=== PATIENT | male | born 1995 | race Caucasian/White ===

== ENCOUNTER 2018-03-21 00:52 | Emergency (ER) | payer OTHER ==
[~2018-03-21] VITALS: Ht 182.9 cm; Wt 77.1 kg
[2018-03-21 00:49] VITALS: BP 121/64
--- NOTE | 2018-03-21 01:09 | Emergency Room Report ---
History of Present Illness General Chief Complaint: Substance Abuse Source: EMS Present Illness HPI This is a 22-year-old male with unknown past medical history. Is brought in by EMS for possible opiate per dose. He was found unresponsive on the street and someone called 911. Per EMS he has sonorous respiration and pinpoint pupil. They gave him 2 mg of Narcan. This woke him up and he was combative and agitated. Unknown able to get here further history from the patient. Unknown drug use. No trauma. Allergies: Coded Allergies: UNABLE TO ASSESS (Unverified , 03/21/18) Patient History Past Medical History: see triage record, old chart reviewed Past Surgical History: unable to obtain Pertinent Family History: unable to obtain Social History: Denies: alcohol use Immunizations: other Reviewed Nursing Documentation: PMH: Agreed; PSxH: Agreed Nursing Documentation-PMH Past Medical History Deferred: Patient Unconscious Review of Systems All Other Systems: limited - altered mental status Physical Exam Vital Signs Date Time Temp Pulse Resp B/P (MAP) Pulse Ox O2 Delivery O2 Flow Rate FiO2 03/21/18 00:40 97.5 97 18 121/64 99 97.5 03/21/18 00:49 Room Air vitals normal Sp02 EP Interpretation: reviewed, normal General Appearance: well appearing, no apparent distress, other - somnolent Head: normocephalic, atraumatic Eyes: bilateral eye PERRL, bilateral eye EOMI ENT: hearing grossly normal, normal pharynx Neck: full range of motion, supple, no meningismus Respiratory: chest non-tender, lungs clear, normal breath sounds Cardiovascular #1: regular rate, rhythm, no murmur Gastrointestinal: normal bowel sounds, non tender, no mass, no organomegaly, no bruit, non-distended Musculoskeletal: back normal, normal range of motion Neurologic: grossly normal Skin: warm/dry Medical Decision Making Diagnostic Impression: Primary Impression: Substance abuse Additional Impressions: Opiate or related narcotic overdose Qualified Codes: T40.601A - Poisoning by unspecified narcotics, accidental ( unintentional), initial encounter Alcohol intoxication Qualified Codes: F10.920 - Alcohol use, unspecified with intoxication, uncomplicated ER Course Patient with overdose, most likely opiate with combination of other drugs or alcohol since he's not fully awake after Narcan. Breathing better. Oxidation normal. We'll observe until clinical sobriety. Patient had elevated alcohol level. Urine drug screen negative for opiates. He may have synthetic opiates that would not show up on the drug screen. He did have pinpoint pupil and responded to Narcan. He had a chicken cheek [facility] a [facility] on his person. Rhythm Strip Diag. Results Rhythm Strip Time: 01:12 EP Interpretation: yes Rate: 92 Rhythm: NSR, no PVC's, no ectopy Last Vital Signs Date Time Temp Pulse Resp B/P (MAP) Pulse Ox O2 Delivery O2 Flow Rate FiO2 03/21/18 00:49 97.5 76 18 121/64 99 Room Air 97.5 Status: improved Disposition: HOME, SELF-CARE Condition: Stable Referrals: NOT CHOSEN IPA/MD,REFERRING (PCP) Patient Instructions: Substance Use Disorder Additional Instructions: Stop using drugs. Follow-up with your doctor in 7 days. Follow-up with rehabilitation. Return if worse. MAIDA HIRSCH M.D. Mar 21, 2018 01:09
[2018-03-21 01:35] VITALS: BP 112/78
[2018-03-21 02:55] VITALS: BP 110/74
[2018-03-21 05:14] VITALS: BP 120/68
[2018-03-21 05:40] VITALS: BP 120/68
== END 2018-03-21 05:30 | disposition home or self-care (01) ==
LOC: EDBD 00:52 → EMR 01:01
DX: F19.10 Other psychoactive substance abuse, uncomplicated (principal); T40.601A Poisoning by unspecified narcotics, accidental (unintentional), initial encounter; F10.920 Alcohol use, unspecified with intoxication, uncomplicated
CPT/HCPCS: 36415; 80307; 99283; G0480; 80329